=== PATIENT | female | born 1950 | race Caucasian/White ===

== ENCOUNTER → 2023-09-10 11:47 | Outpatient (REF) | payer OTHER, SELFPAY | LOC: WDC 11:47 | PROVIDERS: ATTENDING PHYSICIAN Family Medicine | DX: Z12.31 Encounter for screening mammogram for malignant neoplasm of breast (principal) | CPT/HCPCS: 77063; 77067 ==

== ENCOUNTER → 2023-12-11 10:10 | Outpatient (REF) | payer OTHER, SELFPAY | LOC: RCS 10:10 | PROVIDERS: ATTENDING PHYSICIAN Internal Medicine Cardiovascular Disease; FAMILY PHYSICIAN Family Medicine | DX: R00.2 Palpitations (principal); I10 Essential (primary) hypertension; Z95.0 Presence of cardiac pacemaker; I21.4 Non-ST elevation (NSTEMI) myocardial infarction | CPT/HCPCS: 93306 ==

== ENCOUNTER → 2024-01-02 08:54 | Outpatient (REF) | payer OTHER, SELFPAY | LOC: RAD 08:54 | PROVIDERS: ATTENDING PHYSICIAN Family Medicine | DX: Z13.820 Encounter for screening for osteoporosis (principal); Z78.0 Asymptomatic menopausal state | CPT/HCPCS: 77080 ==

== ENCOUNTER → 2024-01-13 11:19 | Outpatient (REF) | payer OTHER, SELFPAY | LOC: DHCBC/DCA 11:19 | PROVIDERS: ATTENDING PHYSICIAN Nurse Practitioner; FAMILY PHYSICIAN Family Medicine | DX: I47.29 Other ventricular tachycardia (principal) | CPT/HCPCS: 78452; 93017; A9500; J2785 ==

== ENCOUNTER → 2024-10-08 12:56 | Outpatient (REF) | payer OTHER, SELFPAY | LOC: WDC 12:56 | PROVIDERS: ATTENDING PHYSICIAN Family Medicine | DX: Z12.31 Encounter for screening mammogram for malignant neoplasm of breast (principal) | CPT/HCPCS: 77063; 77067 ==